=== PATIENT | male | born 1980 | race Caucasian/White ===

== ENCOUNTER 2019-01-13 20:10 | Emergency (ER) | payer OTHER ==
[2019-01-13] MEDS ORDERED: ASPIRIN 81 MG CHEWABLE TAB PO ONE (23:31)
--- NOTE | 2019-01-13 23:32 | EDPHY ---
H & P Stated Complaint: chest pain,dyspnea,palpitations for 3 days Time Seen by Provider: 01/13/19 20:34 HPI/ROS: CHIEF COMPLAINT: [Electrical flutter in the left upper chest as well as recent left biceps pain. ] HISTORY OF PRESENT ILLNESS: [ This is an active 38-year-old male who recently moved here from the [facility]. 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 Evidently he has been seen by his PCP and requested exercise stress test to be done at [facility], however it has not been scheduled. Today he went to a ball field with his son. He was watching the game and was not doing anything terribly exerting those a nice spring day. He had a sense of a heavy heartbeat that she was off and on for the course of 3 hr. During the worst of this he took a pulse reading and got 80. Furthermore there is a sense of at 1 time a is if he were having a sense of of Flexeril flutter on the left parasternal area some 3 days ago. That came and went. At no time has he noted any diminished in of his exercise tolerance. When he is at the hockey game on the ice he was doing just fine. He did not notice any diaphoresis or nausea with any these episodes. There is swelling no shortness of breath.] REVIEW OF SYSTEMS: Constitutional: No fever, no chills. No diaphoresis. Eyes: No discharge ENT: No sore throat. Cardiovascular: See above Respiratory: See above Gastrointestinal: No Nausea, vomiting, abdominal pain or diarrhea. Genitourinary: No hematuria or frequency. Musculoskeletal: No back pain. Skin: No rashes. Neurological: No headache. [A 10 system review of systems was performed and is negative except for the noted findings in the HPI.] Source: Patient Exam Limitations: No limitations - Personal History Current Tetanus Diphtheria and Acellular Pertussis (TDAP): Yes Tetanus Vaccine Date: unsure - Medical/Surgical History Hx Asthma: No Hx Chronic Respiratory Disease: No Hx Diabetes: No Hx Cardiac Disease: No Hx Renal Disease: No Hx Cirrhosis: No Hx Alcoholism: No Hx HIV/AIDS: No Hx Splenectomy or Spleen Trauma: No Other PMH: denies - Family History Significant Family History: No pertinent family hx (Grandfather was 2 strokes. Father history history of hypertension on beta-blockers. Maternal grandmother with history of coronary disease however this was when she was quite old.) - Social History Smoking Status: Never smoked Alcohol Use: None Drug Use: None - Physical Exam Exam: General Appearance: Alert, no distress. Afebrile. Normal phonation. No respiratory distress. Eyes: Pupils equal and round no pallor or injection. No icterus ENT, Mouth: Mucous membranes moist Pharynx without erythema or exudate. TM Clear. Neck: No adenopathy. Supple. No JVD. Trachea in midline. Respiratory: There are no retractions, lungs are clear to auscultation. Chest wall: Nontender to palpation. No crepitus. Cardiovascular: Regular rate and rhythm, no murmur. Abdomen: Soft and nontender, no masses, bowel sounds normal. . Neurological: Ox3. No motor weakness. Sensation intact. Gait nl. Skin: Warm and dry, no rashes. Musculoskeletal: No joint swelling. Extremities: No edema. Homans sign negative. No cords. Psychiatric: Normal affect. Patient is oriented X 3. There is no agitation Constitutional: Initial Vital Signs Temperature (C) 36.9 C 01/13/19 20:27 Heart Rate 68 01/13/19 20:27 Respiratory Rate 14 01/13/19 20:27 Blood Pressure 150/87 H 01/13/19 20:27 O2 Sat (%) 95 01/13/19 20:27 O2 Delivery Mode Room Air Allergies/Adverse Reactions: No Known Allergies Allergy (Unverified 01/13/19 20:26) Home Medications: Medication Instructions Recorded NK [No Known Home Meds] 01/13/19 Medical Decision Making - Diagnostics EKG Interpretation: EKG: Interpreted by me contemporaneously. Rhythm: Normal sinus rhythm, with a UT interval of 213 Heart rate 64 QTc 409 QRS: [normal, with mild early repolarization STT segment: Mild early repolarization T Waves: Normal Q waves none Summary: Normal Ekg, normal sinus rhythm with benign early repolarization. Imaging Results: Chest x-ray: Two view chest. Interpreted by [radiologist] . Films [reviewed ] by me on the PACS system. Normal mediastinum. Normal lung anderson. No effusions. Normal chest. ED Course/Re-evaluation: He felt well throughout his entire stay here in the department. No recurrence symptoms. Laboratory studies here included: Normal CBC Normal basic panel Undetectable troponin. He a on I then had a discussion. He has a low risk heart score of approximately 0-1. This would represent a low risk stratification.. I have given the option to be admitted to the hospital however declined. Nonetheless, he is to function in lower exercise capacity than usual and avoid any excessive exercise except for perhaps walking and some light house chores. He is to call to arrange the stress test as scheduled return if her current symptomatology or accelerating symptoms. - Data Points Medications Given: Discontinued Medications Aspirin (Aspirin) 324 mg PO EDNOW ONE Stop: 01/13/19 23:32 Last Admin: 01/13/19 23:40 Dose: 324 mg Point of Care Test Results: CBC CBC Collection Date 01/13/19 WBC 5.02 RBC 5.04 HGB 14.7 HCT 43.2 PLT 209 Neut # 2.89 Neut 57.5 LYMPH # 1.55 LYMPH 30.9 MCV 85.7 Chemistry 01/13/19 01/13/19 22:52 22:50 POC Sodium 142 mEq/L mEq/L (135-145) POC Potassium 3.6 mEq/L mEq/L (3.3-5.0) POC Chloride 106.0 mEq/L mEq/L (97-110) POC Total CO2 29 mEq/L mEq/L (22-31) POC BUN 13 mg/dL mg/dL (7-23) POC Creatinine 1.2 mg/dL mg/dL (0.7-1.3) POC Glucose 99 mg/dL mg/dL (70-100) POC Calcium 9.7 mg/dL mg/dL (8.5-10.4) POC Troponin I 0.00 ng/mL ng/mL (0.00-0.08) Departure - Departure Disposition: Home, Routine, Self-Care Clinical Impression: Palpitation, biceps pain Condition: Good Instructions: Chest Pain (ED), Heart Palpitations (ED) Additional Instructions: Home to rest Take aspirin, 81 mg daily until you have follow-up Called Cardiology later this week on Tuesday. No heavy exertion such as exercise, playing hockey, or ride a bike until seen in follow-up If symptoms recur or return Referrals: NONE *PRIMARY CARE P,. [Primary Care Provider] - As per Instructions
[2019-01-13] MEDS ORDERED: ASPIRIN 81 MG CHEWABLE TAB ONE (23:42)
--- NOTE | 2019-01-14 00:44 | CPEKG ---
Test Reason : OPEN Blood Pressure : / mmHG Vent. Rate : 064 BPM Atrial Rate : 066 BPM P-R Int : 213 ms QRS Dur : 097 ms QT Int : 396 ms P-R-T Axes : 049 026 002 degrees QTc Int : 409 ms Sinus rhythm Prolonged OH interval ST elev, probable normal early repol pattern Confirmed by Keaton Olvera ([id number]) on 01/14/2019 12:44:11 AM Referred By: Keaton Olvera Confirmed By:Keaton Olvera
[2019-01-14 03:57] VITALS: BP 136/76
== END 2019-01-13 23:49 | disposition home or self-care (01) ==
LOC: CED 20:10
DX: R00.2 Palpitations (principal); M79.622 Pain in left upper arm
CPT/HCPCS: 71046-PO; 80048-ER; 84484-ER; 85025-QW-ER; 99285-ER